=== PATIENT | female | born 1990 | race African-American/Black ===

== ENCOUNTER 2021-08-13 14:38 | Outpatient (CLI) | payer OTHER | END 2021-08-13 14:39 | disposition home or self-care (01) | LOC: CSHRAD 14:38 | PROVIDERS: ATTEND Family Medicine | DX: L98.9 Disorder of the skin and subcutaneous tissue, unspecified (principal) ==

== ENCOUNTER 2024-02-23 10:13 | Emergency (ER) | payer MEDICAID, OTHER ==
[2024-02-23 11:55] LABS: #Basophils 0.06 10x3/uL (0.0-0.2); #Eosinphils 0.13 10x3/uL (0.0-0.5); #Monocytes 0.66 10x3/uL (0.0-1.1); #Neutrophils 4.86 10x3/uL (1.5-8.4); %Basophils 0.8 % (0.0-2.0); %Eosinophils 1.7 % (0.0-6.0); %Monocytes 8.8 % (0.0-10.0); %Neutrophils 64.6 % (40.0-75.0); Hematocrit 39.1 % (34.9-44.5); Hemoglobin 13.7 g/dL (12.0-15.5); Mean Corpuscular Hemoglobin 29.5 pg (27.0-33.0); Mean Corpuscular Volume 84.1 fl (81.6-98.3); Mean Platelet Volume 8.5 fl (7.4-10.4); Platelet Count 327 10x3/uL (150-450); RBC Distribution Width 14.7 % (11.5-14.5); Red Blood Cell (RBC) Count 4.65 10x6/uL (3.90-5.03); White Blood Cell (WBC) Count 7.5 10x3/uL (3.5-10.5)
[2024-02-23 12:03] LABS: ALT (SGPT) 14 U/L (8-55); AST (SGOT) 17 U/L (5-34); Alkaline Phosphatase 60 U/L (40-110); Anion Gap 15 mmol/L (10-20); BUN (Urea Nitrogen) 13 mg/dL (7.0-18.7); Bilirubin, Total 0.7 mg/dL (0.2-1.2); Calc. Creatinine Clearance 0 mL/min (70-130); Calcium 9.5 mg/dL (7.8-10.44); Carbon Dioxide 19 mmol/L (22-29); Chloride 105 mmol/L (98-107); Estimated GFR 102; Globulin 3.4 g/dL (2.4-3.5); Glucose 81 mg/dL (70-105); Potassium 4.2 mmol/L (3.5-5.1); Protein, Total 7.4 g/dL (6.0-8.3); Sodium 135 mmol/L (136-145)
== END 2024-02-23 14:12 | disposition home or self-care (01) ==
LOC: CSHERS 10:13
DX: O20.0 Threatened abortion (principal); O16.1 Unspecified maternal hypertension, first trimester; Z3A.01 Less than 8 weeks gestation of pregnancy
CPT/HCPCS: 76856; 80053; 84702; 85025

== ENCOUNTER 2024-02-25 12:12 | Emergency (ER) | payer OTHER, MEDICAID ==
[2024-02-25 13:23] LABS: #Basophils 0.09 10x3/uL (0.0-0.2); #Eosinphils 0.12 10x3/uL (0.0-0.5); #Monocytes 0.77 10x3/uL (0.0-1.1); #Neutrophils 3.96 10x3/uL (1.5-8.4); %Basophils 1.2 % (0.0-2.0); %Eosinophils 1.6 % (0.0-6.0); %Lymphocytes 35.8 % (18.0-47.0); %Neutrophils 51.1 % (40.0-75.0); Hematocrit 40.9 % (34.9-44.5); Hemoglobin 13.9 g/dL (12.0-15.5); Mean Corpuscular Hemoglobin 28.5 pg (27.0-33.0); Mean Corpuscular Volume 83.8 fl (81.6-98.3); Mean Platelet Volume 8.7 fl (7.4-10.4); Platelet Count 331 10x3/uL (150-450); RBC Distribution Width 14.4 % (11.5-14.5); Red Blood Cell (RBC) Count 4.88 10x6/uL (3.90-5.03); White Blood Cell (WBC) Count 7.7 10x3/uL (3.5-10.5)
[2024-02-25] MEDS ORDERED: HYDROmorphone 0.5 MG/0.5 ML SYRINGE ONE ×2 (13:37→14:24)
[2024-02-25 13:43] LABS: ALT (SGPT) 17 U/L (8-55); AST (SGOT) 19 U/L (5-34); Albumin 4.1 g/dL (3.5-5.0); Alkaline Phosphatase 60 U/L (40-110); Anion Gap 14 mmol/L (10-20); BUN (Urea Nitrogen) 11 mg/dL (7.0-18.7); Bilirubin, Total 0.9 mg/dL (0.2-1.2); Calc. Creatinine Clearance 0 mL/min (70-130); Calcium 9.8 mg/dL (7.8-10.44); Carbon Dioxide 21 mmol/L (22-29); Chloride 106 mmol/L (98-107); Estimated GFR 94; Globulin 3.4 g/dL (2.4-3.5); Glucose 102 mg/dL (70-105); Potassium 3.9 mmol/L (3.5-5.1); Protein, Total 7.5 g/dL (6.0-8.3); Sodium 137 mmol/L (136-145)
[2024-02-25] MEDS ORDERED: Ondansetron PF 4 MG/2 ML Vial ONE ×2 (14:41→14:56)
[2024-02-25] MEDS ORDERED: EPINEPHrine 1 MG/ML VIAL ONE (14:42)
[2024-02-25] MEDS ORDERED: Tranexamic Acid 1,000 MG/10 ML VIAL ONE (14:42)
[2024-02-25] MEDS ORDERED: Bupivacaine PF 0.5% 30 ML VIAL ONE (14:43)
[2024-02-25 14:47] LABS: Bilirubin Neg (Negative); Blood, Urine 150 (Negative); Clarity Slightly Cloudy (Clear); Glucose, Urine (Dipstick) Normal (Negative); Ketone, Urine 150 mg/dL (Negative); Leukocyte 25 (Negative); Nitrite Negative (Negative); Protein, Urine (Dipstick) 15 mg/dl (Neg-Trace)
[2024-02-25] MEDS ORDERED: Dexamethasone 4 mg/ml Vial ONE (14:56)
[2024-02-25] MEDS ORDERED: Rocuronium Bromide 10 MG/ML (10ML VIAL) ONE (14:56)
[2024-02-25] MEDS ORDERED: PROPOFOL 40 ML ONE (14:56)
[2024-02-25] MEDS ORDERED: fentaNYL 50 mcg/mL 1 mL Vial ONE ×3 (14:56→16:51)
[2024-02-25] MEDS ORDERED: Lidocaine 1% PF 5 ML VIAL ONE (14:56)
[2024-02-25 15:00] LABS: CAUTI Indications for Culture Pelvic or flank pain
[2024-02-25 15:02] LABS: Bacteria/HPF 2+ HPF (None Seen)
[2024-02-25 15:04] LABS: Urine Culture Reflex Yes Yes
[2024-02-25] MEDS ORDERED: Ketorolac Tromethamine 30 MG (1 mL) VIAL ONE (15:47)
[2024-02-25] MEDS ORDERED: SUGAMMADEX SODIUM 200 MG/2 ML VIAL ONE (15:51)
[2024-02-25] MEDS ORDERED: Meperidine HCl/PF 25 MG (1 mL) VIAL ONE (16:03)
[2024-02-25] MEDS ORDERED: hydrALAZINE 20 MG/ML VIAL SLOW IVP PRN (16:12)
[2024-02-25] MEDS ORDERED: Ketorolac Tromethamine 30 MG (1 mL) VIAL IVP PRN (16:12)
[2024-02-25] MEDS ORDERED: Ipratropium/Albuterol 3 ML NEB NEB PRN (16:12)
[2024-02-25] MEDS ORDERED: Ondansetron PF 4 MG/2 ML Vial IVP PRN (16:12)
[2024-02-25] MEDS ORDERED: Promethazine HCl 25 MG/ML VIAL IM PRN (16:12)
[2024-02-25] MEDS ORDERED: HYDROcodone/Acetaminophen 5/325 mg Tablet PO PRN (16:14)
[2024-02-25] MEDS ORDERED: Lactated Ringer's 1,000 ML IV SCH (16:15)
[2024-02-25] MEDS ORDERED: Promethazine HCl 25 MG/ML VIAL ONE (16:51)
== END 2024-02-25 18:15 | disposition home or self-care (01) ==
LOC: CSHERS 12:12
DX: O00.90 Unspecified ectopic pregnancy without intrauterine pregnancy (principal); I16.0 Hypertensive urgency
CPT/HCPCS: 36415; 76856; 80053; 81001; 84702; 85025; 86900; 86901; 87077; 87086; 87186; 88305; 96374; 96375; 96376; J0171; J0665; J1100; J1170; J1885; J2175; J2405; J2550; J2704; J3010